=== PATIENT | female | born 1990 | race Two or more races ===

== ENCOUNTER 2018-10-18 19:52 | Observation (INO) | payer SELFPAY ==
[~2018-10-18] VITALS: Ht 170.2 cm; Wt 81.6 kg
== END 2018-10-18 20:55 | disposition home or self-care (01) | DRG 833 ==
LOC: LDRP 19:52
PROVIDERS: ADMIT Obstetrics & Gynecology; ATTEND Obstetrics & Gynecology
DX: O00.01 Abdominal pregnancy with intrauterine pregnancy (principal); Z3A.38 38 weeks gestation of pregnancy; O62.9 Abnormality of forces of labor, unspecified
CPT/HCPCS: 59025; 81002; G0378

== ENCOUNTER 2022-01-12 09:29 | Emergency (ER) | payer MEDICAID ==
[~2022-01-12] VITALS: Ht 170.2 cm; Wt 66.0 kg
[~2022-01-12 09:29] MED LIST: PREN-96 PO
[2022-01-12 09:36] VITALS: BP 104/50
[2022-01-12 10:23] LABS: Basophils # (auto) 0 10 ^3/uL (0-0.2); Basophils % (auto) 0.5 % (0.0-2.0); Eosinophils # (auto) 0 10 ^3/uL (0-0.8); Eosinophils % (auto) 0.2 % (0.0-7.0); Hematocrit 36.7 % (36.0-46.0); Hemoglobin 12.2 g/dL (12.2-16.2); Lymphocytes # (auto) 2.1 10 ^3/uL (0.4-5.4); Lymphocytes % (auto) 44.7 % (10.0-50.0); Mean Corpuscular Hemoglobin 30.2 pg (28.0-32.0); Mean Corpuscular Hgb Conc. 33.2 g/dL (32.0-36.0); Monocytes # (auto) 0.2 10 ^3/uL (0-1.3); Monocytes % (auto) 5.2 % (0.0-12.0); Neutrophils # (auto) 2.4 10 ^3/uL (1.6-8.6); Neutrophils % (auto) 49.4 % (37.0-80.0); Nucleated Red Blood Cells % 0.2 %; Red Blood Cells 4.03 10^6/uL (4.0-5.20); Red Cell Distribution Width 13.1 % (11.8-14.3); White Blood Cell 4.8 10^3/uL (4.4-10.8)
[2022-01-12 10:27] LABS: Urine Bacteria FEW /hpf (None Seen); Urine Blood Negative /uL (Negative); Urine Mucus FEW (None Seen); Urine WBC <1 /hpf (0 - 5)
[2022-01-12 10:37] LABS: Albumin 3.9 g/dL (3.4-5.0); Calcium 8.5 mg/dL (8.5-10.1); Potassium 4.1 mmol/L (3.5-5.1)
[2022-01-12 10:41] LABS: Bilirubin, Total 0.4 mg/dL (0.2-1.0); Total Protein 7.3 g/dL (6.4-8.2)
== END 2022-01-12 12:26 | disposition home or self-care (01) ==
LOC: ER 09:29
DX: O20.0 Threatened abortion (principal); Z79.899 Other long term (current) drug therapy; Z3A.01 Less than 8 weeks gestation of pregnancy
CPT/HCPCS: 36415; 76801; 80053; 81001; 84702; 85025

== ENCOUNTER 2022-07-03 10:22 | Observation (INO) | payer MEDICAID | END 2022-07-03 12:28 | disposition home or self-care (01) | LOC: LDRP 10:22 → UNDOADMOB 10:22 → LDRP 10:57 → UNDODISOB 12:28 | PROVIDERS: ADMIT Obstetrics & Gynecology; ATTEND Obstetrics & Gynecology | DX: O24.419 Gestational diabetes mellitus in pregnancy, unspecified control (principal); Z3A.31 31 weeks gestation of pregnancy | CPT/HCPCS: 59025; 76818; 81002; 82948; 82962; 94760; G0378 ==

== ENCOUNTER 2022-07-06 12:00 | Observation (INO) | payer MEDICAID ==
[~2022-07-06] VITALS: Ht 167.6 cm; Wt 66.7 kg
[2022-07-06] MEDS ORDERED: LACTATED RINGER'S 1,000 ML IV SCH (13:00)
[2022-07-06] MEDS ORDERED: BETAMETHASONE ACET (30mg/5ml) 5ml Vial 6mg/ml IM ONE (13:00)
[2022-07-06] MEDS ORDERED: LACTATED RINGER'S 1,000 ML IV ONE (13:00)
[2022-07-06] MEDS ORDERED: TERBUTALINE SULFATE 1 MG/ML 1ML VIAL SC ONE (13:11)
[2022-07-06] MEDS ORDERED: BUTORPHANOL TARTRATE 2 MG/1 ML VIAL IV ONE (14:45)
[2022-07-06] MEDS: TERBUTALINE SULFATE 1 MG/ML 1ML VIAL SC SCH ×2 (14:46→16:13)
[2022-07-06 14:57] VITALS: BP 113/54
[2022-07-06] MEDS ORDERED: NIFEdipine 10 MG CAP PO SCH (15:00)
[2022-07-06] MEDS ORDERED: NIFE1TAB31 PO (17:36)
[2022-07-06] MEDS ORDERED: NIF10C PO (17:38)
== END 2022-07-06 18:04 | disposition home or self-care (01) ==
LOC: LDRP 12:00
PROVIDERS: ADMIT Obstetrics & Gynecology; ATTEND Obstetrics & Gynecology
DX: O98.513 Other viral diseases complicating pregnancy, third trimester (principal); Z20.822 Contact with and (suspected) exposure to COVID-19; B34.9 Viral infection, unspecified; O21.2 Late vomiting of pregnancy; O26.893 Other specified pregnancy related conditions, third trimester; R42 Dizziness and giddiness; O62.9 Abnormality of forces of labor, unspecified; O99.891 Other specified diseases and conditions complicating pregnancy; M79.605 Pain in left leg; M79.604 Pain in right leg; Z3A.31 31 weeks gestation of pregnancy
CPT/HCPCS: 36415; 59025; 76815; 81002; 82948; 82962; 87426; 94760; 96361; 96372; 96374; G0378; J0595; J0702; J3105; 96360

== ENCOUNTER 2022-07-07 13:00 | Observation (INO) | payer MEDICAID ==
[~2022-07-07] VITALS: Ht 167.6 cm; Wt 70.3 kg
[~2022-07-07 13:00] MED LIST changes: +NIF10C PO
[2022-07-07] MEDS ORDERED: BETAMETHASONE ACET (30mg/5ml) 5ml Vial 6mg/ml IM ONE (15:15)
== END 2022-07-07 16:10 | disposition home or self-care (01) ==
LOC: LDRP 13:00
PROVIDERS: ADMIT Obstetrics & Gynecology; ATTEND Obstetrics & Gynecology
DX: O60.03 Preterm labor without delivery, third trimester (principal); Z3A.31 31 weeks gestation of pregnancy
CPT/HCPCS: 59025; 81002; 82948; 82962; 94760; 96372; G0378

== ENCOUNTER 2022-07-10 10:18 | Observation (INO) | payer MEDICAID | END 2022-07-10 15:25 | disposition home or self-care (01) | LOC: LDRP 13:07 → UNDOADMOB 14:17 → LDRP 14:19 → UNDODISOB 15:25 | PROVIDERS: ADMIT Obstetrics & Gynecology; ATTEND Obstetrics & Gynecology | DX: O24.419 Gestational diabetes mellitus in pregnancy, unspecified control (principal); O40.3XX0 Polyhydramnios, third trimester, not applicable or unspecified; Z3A.32 32 weeks gestation of pregnancy | CPT/HCPCS: 59025; 76818; 81002; 82948; 82962; 94760; G0378 ==

== ENCOUNTER 2022-07-17 14:15 | Observation (INO) | payer MEDICAID | END 2022-07-17 15:51 | disposition home or self-care (01) | LOC: UNDOADMOB 14:15 → LDRP 14:15 → UNDODISOB 15:51 | PROVIDERS: ADMIT Obstetrics & Gynecology; ATTEND Obstetrics & Gynecology | DX: O40.3XX0 Polyhydramnios, third trimester, not applicable or unspecified (principal); O24.419 Gestational diabetes mellitus in pregnancy, unspecified control; O60.03 Preterm labor without delivery, third trimester; Z3A.33 33 weeks gestation of pregnancy | CPT/HCPCS: 59025; 76818; 81002; 82948; 82962; G0378 ==

== ENCOUNTER 2022-07-24 14:08 | Observation (INO) | payer MEDICAID ==
[~2022-07-24] VITALS: Ht 167.6 cm; Wt 80.3 kg
== END 2022-07-24 15:39 | disposition home or self-care (01) ==
LOC: LDRP 14:08 → UNDOADMOB 14:34 → LDRP 14:35
PROVIDERS: ADMIT Obstetrics & Gynecology; ATTEND Obstetrics & Gynecology
DX: O40.3XX0 Polyhydramnios, third trimester, not applicable or unspecified (principal); O60.03 Preterm labor without delivery, third trimester; O24.415 Gestational diabetes mellitus in pregnancy, controlled by oral hypoglycemic drugs; O26.893 Other specified pregnancy related conditions, third trimester; R10.11 Right upper quadrant pain; Z3A.34 34 weeks gestation of pregnancy; Z79.84 Long term (current) use of oral hypoglycemic drugs
CPT/HCPCS: 59025; 76818; 81002; 82962; 94760; G0378

== ENCOUNTER 2022-07-31 07:35 | Observation (INO) | payer MEDICAID | END 2022-07-31 15:29 | disposition home or self-care (01) | LOC: LDRP 14:08 → UNDOADMOB 14:10 → LDRP 14:10 | PROVIDERS: ADMIT Obstetrics & Gynecology; ATTEND Obstetrics & Gynecology | DX: O24.419 Gestational diabetes mellitus in pregnancy, unspecified control (principal); Z3A.35 35 weeks gestation of pregnancy | CPT/HCPCS: 59025; 76818; 81002; 82948; 82962; 94760; G0378 ==

== ENCOUNTER 2022-08-07 14:18 | Observation (INO) | payer MEDICAID | END 2022-08-07 16:22 | disposition home or self-care (01) | LOC: UNDOADMOB 14:18 → LDRP 14:18 | PROVIDERS: ADMIT Obstetrics & Gynecology; ATTEND Obstetrics & Gynecology | DX: O24.419 Gestational diabetes mellitus in pregnancy, unspecified control (principal); O36.63X0 Maternal care for excessive fetal growth, third trimester, not applicable or unspecified; O40.3XX0 Polyhydramnios, third trimester, not applicable or unspecified; Z3A.36 36 weeks gestation of pregnancy | CPT/HCPCS: 59025; 76818; 81002; 82948; 82962; 94760; G0378 ==

== ENCOUNTER 2022-08-09 11:02 | Observation (INO) | payer MEDICAID ==
[2022-08-09] MEDS ORDERED: GLYB1.257 PO (13:39)
== END 2022-08-09 13:48 | disposition home or self-care (01) ==
LOC: UNDOADMOB 11:02 → LDRP 11:02 → UNDODISOB 13:48
PROVIDERS: ADMIT Obstetrics & Gynecology; ATTEND Obstetrics & Gynecology
DX: O24.419 Gestational diabetes mellitus in pregnancy, unspecified control (principal); O26.893 Other specified pregnancy related conditions, third trimester; R10.11 Right upper quadrant pain; R10.12 Left upper quadrant pain; Z3A.36 36 weeks gestation of pregnancy
CPT/HCPCS: 59025; 76818; 81002; 82948; 82962; 94760; G0378

== ENCOUNTER 2022-08-14 14:15 | Observation (INO) | payer MEDICAID ==
[~2022-08-14 14:15] MED LIST changes: +GLYB1.257 PO; -NIF10C PO
== END 2022-08-14 17:44 | disposition home or self-care (01) ==
LOC: LDRP 14:15 → UNDOADMOB 14:15 → LDRP 14:18
PROVIDERS: ADMIT Obstetrics & Gynecology; ATTEND Obstetrics & Gynecology
DX: O24.419 Gestational diabetes mellitus in pregnancy, unspecified control (principal); Z3A.37 37 weeks gestation of pregnancy
CPT/HCPCS: 59025; 76818; 81002; 82948; 82962; 94760; G0378

== ENCOUNTER 2022-08-16 16:16 | Observation (INO) | payer MEDICAID ==
[2022-08-21] MEDS ORDERED: FER300LQ PO (15:41)
== END 2022-08-21 15:53 | disposition home or self-care (01) ==
LOC: LDRP 16:16 → UNDOADMOB 16:16 → LDRP 08-21 14:05 → UNDOADMOB 08-21 14:08 → UNDODISOB 08-21 15:53
PROVIDERS: ADMIT Obstetrics & Gynecology; ATTEND Obstetrics & Gynecology
DX: O24.419 Gestational diabetes mellitus in pregnancy, unspecified control (principal); O36.63X0 Maternal care for excessive fetal growth, third trimester, not applicable or unspecified; O62.9 Abnormality of forces of labor, unspecified; O40.3XX0 Polyhydramnios, third trimester, not applicable or unspecified; Z3A.38 38 weeks gestation of pregnancy
CPT/HCPCS: 59025; 76818; 81002; 82948; 82962; G0378

== ENCOUNTER 2022-08-17 09:02 | Observation (INO) | payer MEDICAID | END 2022-08-17 11:15 | disposition home or self-care (01) | LOC: LDRP 09:02 | PROVIDERS: ADMIT Obstetrics & Gynecology; ATTEND Obstetrics & Gynecology | DX: O24.419 Gestational diabetes mellitus in pregnancy, unspecified control (principal); O62.9 Abnormality of forces of labor, unspecified; Z3A.37 37 weeks gestation of pregnancy; Z79.899 Other long term (current) drug therapy | CPT/HCPCS: 59025; 76818; 81002; 82948; 82962; G0378 ==

== ENCOUNTER 2022-08-25 21:08 | Inpatient (IN) | payer MEDICAID ==
[~2022-08-25] VITALS: Ht 167.6 cm; Wt 81.6 kg
[~2022-08-25 21:08] MED LIST changes: +FER300LQ PO
[2022-08-25] MEDS ORDERED: PROMETHAZINE HCL 25 MG/ML 1ML IV PRN ×2 (21:45→22:15)
[2022-08-25] MEDS ORDERED: BUTORPHANOL TARTRATE 2 MG/1 ML VIAL IV PRN ×2 (21:45)
[2022-08-25] MEDS ORDERED: LACT. RINGERS/OXYTOCIN 20UNITS 500 ML IV ONE ×2 (21:45→22:15)
[2022-08-25] MEDS ORDERED: DERMOPLAST 60ML BOTTLE TOP PRN (21:45)
[2022-08-25] MEDS ORDERED: METHYLERGONOVINE MALEATE 0.2 MG/ML AMP IM ONE (21:45)
[2022-08-25] MEDS ORDERED: PHISODERM TOP SOLN 240ML BTL TOP PRN (21:45)
[2022-08-25] MEDS ORDERED: WITCH HAZEL-GLYCERIN PAD TOP PRN (21:45)
[2022-08-25] MEDS ORDERED: LIDOCAINE 2%HCL (LOCAL ANESTH.) INJ 20ML MDV IJ PRN ×2 (21:45→22:15)
[2022-08-25 22:27] LABS: Basophils # (auto) 0.1 10 ^3/uL (0-0.2); Basophils % (auto) 0.7 % (0.0-2.0); Eosinophils # (auto) 0 10 ^3/uL (0-0.8); Eosinophils % (auto) 0.4 % (0.0-7.0); Hematocrit 32.3 % (36.0-46.0); Lymphocytes # (auto) 2.5 10 ^3/uL (0.4-5.4); Lymphocytes % (auto) 29.4 % (10.0-50.0); Mean Corpuscular Hemoglobin 31.2 pg (28.0-32.0); Mean Corpuscular Hgb Conc. 34.1 g/dL (32.0-36.0); Mean Corpuscular Volume 91.5 fL (80.0-100.0); Monocytes # (auto) 0.6 10 ^3/uL (0-1.3); Monocytes % (auto) 7.4 % (0.0-12.0); Neutrophils # (auto) 5.2 10 ^3/uL (1.6-8.6); Neutrophils % (auto) 62.1 % (37.0-80.0); Nucleated Red Blood Cells % 0.4 %; Red Blood Cells 3.52 10^6/uL (4.0-5.20); Red Cell Distribution Width 16.1 % (11.8-14.3); White Blood Cell 8.4 10^3/uL (4.4-10.8)
[2022-08-25 22:41] LABS: INR 0.9 (0.9-1.15); Partial Thromboplastin Time 28.5 sec (24.6-33.4)
[2022-08-25 22:46] LABS: Albumin 2.5 g/dL (3.4-5.0); Calcium 8.2 mg/dL (8.5-10.1); Potassium 3.4 mmol/L (3.5-5.1)
[2022-08-25 22:49] LABS: BUN/Creatinine Ratio 20.9 (10.0-20.0); Bilirubin, Total 0.2 mg/dL (0.2-1.0); Total Protein 6.6 g/dL (6.4-8.2)
[2022-08-25] MEDS: LACTATED RINGER'S 1,000 ML IV SCH (22:54)
[2022-08-25 23:11] LABS: Urine WBC None Seen /hpf (0 - 5)
[2022-08-25 23:24] LABS: Urine Bacteria FEW /hpf (None Seen); Urine Blood Negative /uL (Negative); Urine Specific Gravity 1.003 (1.001-1.035)
[2022-08-25 23:34] LABS: Alcohol, Urine < 3.0 mg/dL (0-10); Amphetamine Screen, Urine NEGATIVE (NEGATIVE); Barbiturate Scree,Urine NEGATIVE (NEGATIVE); Benzodiazephine Screen, Urine NEGATIVE (NEGATIVE); Cannabinoid Screen, Urine NEGATIVE (NEGATIVE); Cocaine Screen, Urine NEGATIVE (NEGATIVE); Opiate Scree,Urine NEGATIVE (NEGATIVE); Phencyclidine Screen, Urine NEGATIVE (NEGATIVE)
[2022-08-25] MEDS ORDERED: miSOPROStol 100 mcg TAB SL PRN (23:45)
[2022-08-26] MEDS ORDERED: miSOPROStol 50 MCG per PRE-CUT 1/2 TAB PO PRN
[2022-08-26] MEDS ORDERED: TERBUTALINE SULFATE 1 MG/ML 1ML VIAL SC ONE (00:15)
[2022-08-26] MEDS: LACTATED RINGER'S 1,000 ML IV SCH ×2 (01:19→05:48)
[2022-08-26] MEDS ORDERED: TERBUTALINE SULFATE 1 MG/ML 1ML VIAL SC PRN (06:30)
[2022-08-26] MEDS ORDERED: LACT. RINGERS/OXYTOCIN 20UNITS 1,000 ML IV SCH (06:30)
[2022-08-26] MEDS ORDERED: ePHEDrine SULFATE 50 MG/ML AMP IV ONE (08:45)
[2022-08-26] MEDS ORDERED: ROPIVACAINE HCL 200 ML EPI SCH (08:45)
[2022-08-26] MEDS ORDERED: NALOXONE HCL 0.4 MG/ML VIAL IV ONE (08:45)
[2022-08-26] MEDS ORDERED: Lidocaine W-Epinephrine 1.5%-1:200,000 INJ 10ml Vial ONE (09:09)
[2022-08-26] MEDS ORDERED: IBUPROFEN 600 MG TAB PO PRN (17:30)
[2022-08-26] MEDS ORDERED: ACETAMINOPHEN 325 MG TAB PO PRN (17:30)
[2022-08-26] MEDS ORDERED: ONDANSETRON ODT 4 MG TAB PO PRN (17:30)
[2022-08-26] MEDS ORDERED: DEXTROSE (ORAL) 12.5g/31ml 0.4g/ml GEL PO ONE (20:00)
[2022-08-26 20:25] VITALS: BP 118/56
[2022-08-26 22:34] VITALS: BP 124/60
[2022-08-27 03:00] VITALS: BP 124/56
[2022-08-27 06:06] LABS: RPR Non Reactive (Non Reactive)
[2022-08-27 07:20] VITALS: BP 114/56
[2022-08-27 09:16] VITALS: BP 114/56
== END 2022-08-27 09:16 | disposition home or self-care (01) | DRG 560 ==
LOC: LDRP 21:08
PROVIDERS: ADMIT Obstetrics & Gynecology; ATTEND Obstetrics & Gynecology
PROC: 10E0XZZ Delivery of Products of Conception, External Approach (ICD-10-PCS; principal; 2022-08-26)
PROC: 0HQ9XZZ Repair Perineum Skin, External Approach (ICD-10-PCS; 2022-08-26)
PROC: 3E0R3BZ Introduction of Anesthetic Agent into Spinal Canal, Percutaneous Approach (ICD-10-PCS; 2022-08-26)
PROC: 00HU33Z Insertion of Infusion Device into Spinal Canal, Percutaneous Approach (ICD-10-PCS; 2022-08-26)
DX: O36.63X0 Maternal care for excessive fetal growth, third trimester, not applicable or unspecified (principal); Z37.0 Single live birth; O24.429 Gestational diabetes mellitus in childbirth, unspecified control; Z20.822 Contact with and (suspected) exposure to COVID-19; Z3A.39 39 weeks gestation of pregnancy; O70.9 Perineal laceration during delivery, unspecified
CPT/HCPCS: 36415; 59025; 59409; 62282; 80053; 80307; 81001; 82948; 82962; 85025; 85610; 85730; 86592; 86850; 86900; 86901; 87426; 93005; 94760; 94762; 96360; 96361; 96365; 96366; G0378; J2590

== ENCOUNTER 2024-10-26 14:18 | Emergency (ER) | payer MEDICAID ==
[~2024-10-26] VITALS: Ht 167.6 cm; Wt 74.1 kg
--- NOTE | 2024-10-26 15:44 | ED.PDOC ---
History of Present Illness HPI Comments This is a 34-year-old female who comes in with chief complaint of headache for the past three days with left eye pressure and some sinus pressure. The patient has also been having a cough. There has been no nausea vomiting or diarrhea. The patient has been having flu-like symptoms over the past 10 days but has not been seen by anybody. Chief Complaint: Headache Time Seen by MD: 15:22 Reviewed Notes: Nurses Notes, Medications, Allergies (Allergies to metformin) Allergies: Coded Allergies: Metformin (Verified Allergy, Intermediate, SWELLING AND ITCHING, 08/25/22) Home Meds Active Scripts Methylprednisolone (Medrol Dosepak) 4 Mg Karlo, 4 MG PO UD, #21 TAB UAD Prov:DAYANARA PERAZA MD 10/26/24 Azithromycin (Zithromax) 500 Mg Tab, 1 TAB PO DAILY, #5 TAB Prov:DAYANARA PERAZA MD 10/26/24 Reported Medications Ferrous Sulfate (Ferrous Sulfate) 300 Mg/5 Ml Sr, 300 MG PO BID FERROUS SULFATE 300mg/5mL 08/21/22 Glyburide (Glyburide) 1.25 Mg Tab, 1.63 MG PO HS for 30 Days, MG 08/09/22 Vit W/ Ferrous Fumara ( One Daily) Daily Tab, 1 TAB PO, #90 TAB 3 Refills 10/22/18 Information Source: Patient Mode of Arrival: Ambulatory Severity: Mild Timing: Days Duration: Since onset Prehospital treatment: None Location: Sinus pain as well as left eye pressure and cough Past Medical History PAST MEDICAL HISTORY: Denies Surgical History: BTL Surgical History (Other): Lasik surgery 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 Family History Family History: Reviewed,noncontributory to illness Social History Smoker: Non-Smoker Alcohol: Denies ETOH Use Drugs: Denies Drug Use Lives In: Home Constitutional: denies: chills, diaphoresis, fatigue, fever, malaise, sweats, weakness, others EENTM: reports: others (Left eye pressure with sinus pain); denies: blurred vision, double vision, ear bleeding, ear discharge, ear drainage, ear pain, ear ringing, eye pain, eye redness, hearing loss, mouth pain, mouth swelling, nasal discharge, nose bleeding, nose congestion, nose pain, photophobia, tearing, throat pain, throat swelling, voice changes Respiratory: denies: cough, hemoptysis, orthopnea, SOB at rest, shortness of breath, SOB with excertion, stridor, wheezing, others Cardiovascular: denies: chest pain, dizzy spells, diaphoresis, Dyspnea on exertion, edema, irregular heart beat, left arm pain, lightheadedness, palpitations, PND, syncope, others Gastrointestinal: denies: abdomen distended, abdominal pain, blood streaked bowels, constipated, diarrhea, dysphagia, difficulty swallowing, hematemesis, melena, nausea, poor appetite, poor fluid intake, rectal bleeding, rectal pain, vomiting, others Genitourinary: denies: abnormal vagina bleeding, burning, dyspareunia, dysuria, flank pain, frequency, hematuria, incontinence, pain, , vagina discha rge, urgency, others Neurological: denies: dizziness, fainting, headache, left sided numbness, left sided weakness, numbness, paresthesia, pre-existing deficit, right sided numbness, right sided weakness, seizure, speech problems, tingling, tremors, weakness, others Musculoskeletal: denies: back pain, gout, joint pain, joint swelling, muscle pain, muscle stiffness, neck pain, others Integumetry: denies: bruises, change in color, change in hair/nails, dryness, laceration, lesions, lumps, rash, wounds, others Allergic/Immunocompromised: denies: Difficulty Healing, Frequent Infections, Hives, Itching, others Hematologic/Lymphatic: denies: anemia, blood clots, easy bleeding, easy bruising, swollen glands, others Endocrine: denies: excessive hunger, excessive sweating, excessive thirst, excessive urination, flushing, intolerance to cold, intolerance to heat, unexplained weight gain, unexplained weight loss, others Psychiatric: denies: anxiety, bipolar disorder, depression, hopeless, panic disorder, schizophrenia, sleepless, suicidal, others Physical Exam General Appearance: Mild Distress HEENT: Pharynx Normal, TMs Normal, Other (Tenderness to the sinuses) Neck: Full Range of Motion, Non-Tender, Normal, Normal Inspection Respiratory: Chest Non-Tender, Lungs Clear, No Accessory Muscle Use, No Respiratory Distress, Normal Breath Sounds Cardiovascular: No Edema, No JVD, No Murmur, No Gallop, Normal Peripheral Pulses, Regular Rate/Rhythm Breast Exam: Deferred Gastrointestinal: No Organomegaly, Non Tender, No Pulsatile Mass, Normal Bowel Sounds, Soft Genitalia: Deferred Pelvic: Deferred Rectal: Deferred Extremities: No calf tenderness, Normal capillary refill, Normal inspection, Normal range of motion, Non-tender, No pedal edema Musculoskeletal : Apperance: Normal Neurologic: Alert, cloth mercerizer operator II-XII nml as Tested, No Motor Deficits, Normal Affect, Normal Mood, No Sensory Deficits Cerebellar Function: Normal Reflexes: Normal Skin: Dry, Normal Color, Warm Lymphatic: No Adenopathy Was a procedure done? Was a procedure done?: No Differential Dx Considerations may include: Sinusitis, pharyngitis, bronchitis X-Ray, Labs, Meds, VS Vital Signs Date Time Temp Pulse Resp B/P (MAP) Pulse Ox O2 Delivery O2 Flow Rate FiO2 10/26/24 15:05 97.5 89 18 145/74 (97) 97 97.5 The sinus series was done and shows: IMPRESSION: 1. Air-fluid level in the right maxillary air cells suggesting sinusitis. The patient is being discharged The patient will follow up with the primary care doctor The patient will return to the emergency department's condition worsens The patient was given a prescription of Zithromax. Images Reviewed?: Images reviewed and evaluated by me Time of 1ST Reevaluation: 15:44 Reevaluation 1ST: Unchanged Patient Education/Counseling: Diagnosis, Treatment, Prognosis, Need For Follow Up Family Education/Counseling: No Family Present Departure 1 Departure Time of Disposition: 16:45 Impression: Primary Impression: Acute sinusitis Qualified Codes: J01.00 - Acute maxillary sinusitis, unspecified Disposition: HOME / SELF CARE / HOMELESS Condition: Fair e-Prescriptions Methylprednisolone (Medrol Dosepak) 4 Mg Karlo 4 MG PO UD, #21 TAB UAD Prov: DAYANARA PERAZA MD 10/26/24 Azithromycin (Zithromax) 500 Mg Tab 1 TAB PO DAILY, #5 TAB Prov: DAYANARA PERAZA MD 10/26/24 Discharged With: Self Critical Care Note Critical Care Time?: No Stability Stability form required: No Heart Score Heart Score: Heart Score Response (Comments) Value History N/A 0 EKG N/A 0 Age N/A 0 Risk Factors N/A 0 Troponin N/A 0 Total 0 DAYANARA PERAZA MD October 26, 2024 15:44
--- NOTE | 2024-10-26 16:32 | DVH ---
PARANASAL SINUSES: INDICATION: Sinus pain TECHNIQUE: 4 views FINDINGS: The paranasal sinuses are well-aerated. Air-fluid level in right maxillary air cells suggesting sinusitis. The remaining paranasal sinuses ar e well aerated.. Osseous alignment is anatomic. No displaced fractures are demonstrated. IMPRESSION: 1. Air-fluid level in the right maxillary air cells suggesting sinusitis.
[2024-10-26] MEDS ORDERED: AZIT500T PO (16:43)
[2024-10-26] MEDS ORDERED: METH4PAK PO (16:43)
[2024-10-26 17:20] VITALS: BP 138/82; PULSE 80; RESP 16; TEMP 98.7; O2SAT 98
== END 2024-10-26 17:30 | disposition home or self-care (01) ==
LOC: ER 14:28
DX: J01.00 Acute maxillary sinusitis, unspecified (principal); Z98.51 Tubal ligation status; Z98.890 Other specified postprocedural states; Z79.899 Other long term (current) drug therapy; Z88.1 Allergy status to other antibiotic agents
CPT/HCPCS: 70210